=== PATIENT | male | born 1970 | race Caucasian/White ===

== ENCOUNTER → 2023-11-20 16:03 | Outpatient (REF) | payer BC, SELFPAY ==
[2023-11-20 17:55] LABS: Body Fluid Mononuclear 41.3 %; Body Fluid Polymorphonuclear 58.7 %; Body Fluid WBC 11000 /CUMM
[2023-11-20 18:20] LABS: Body Fluid Second Tech EYM
== END ==
LOC: CLAB 16:03
PROVIDERS: ATTENDING PHYSICIAN Physician Assistant Surgical
DX: M25.561 Pain in right knee (principal)
CPT/HCPCS: 36415; 87476; 89051; 89060

== ENCOUNTER → 2023-11-29 09:43 | Outpatient (REF) | payer BC, SELFPAY | LOC: MRI 3T 09:43 | PROVIDERS: ATTENDING PHYSICIAN Physician Assistant Surgical | DX: M25.461 Effusion, right knee (principal); M23.91 Unspecified internal derangement of right knee | CPT/HCPCS: 73721 ==

== ENCOUNTER → 2024-08-25 10:39 | Outpatient (REF) | payer SELFPAY | LOC: HWRAD 10:39 | PROVIDERS: ATTENDING PHYSICIAN Internal Medicine | DX: E78.6 Lipoprotein deficiency (principal); E78.2 Mixed hyperlipidemia; Z82.49 Family history of ischemic heart disease and other diseases of the circulatory system | CPT/HCPCS: 75571 ==